=== PATIENT | male | born 1970 | race Caucasian/White ===

== ENCOUNTER 2016-09-04 21:51 | Emergency (ER) | payer OTHER, MEDICAID ==
[2016-09-04 22:00] VITALS: BP 134/83
--- NOTE | 2016-09-05 01:11 | ER Document Report ---
ED Extremity Problem, Lower - General Chief Complaint: Ankle Injury Stated Complaint: ANKLE INJURY Mode of Arrival: Ambulatory Information source: Patient TRAVEL OUTSIDE OF THE [place] IN LAST 30 DAYS: No - HPI Patient complains to provider of: Pain Notes: Patient arrives with complaints of right foot and ankle pain since today. The patient states he hiked approximately 10 miles, had an inversion injury during the hike. He now has swelling to the foot and ankle. He said prior fracture to this foot. He is due to have his left hip replaced, and states that he needs to have the foot evaluated prior to being able to have his hip surgery. He denies any other injuries. He denies any fever. No redness. No nausea, vomiting, diarrhea. No numbness tingling or weakness. No chest pain or shortness of breath. His other complaints or injuries at this time. - Related Data Allergies/Adverse Reactions: atorvastatin calcium [From Lipitor] Allergy (Verified 01/05/15 01:27) Past Medical History - Social History Smoking Status: Unknown if Ever Smoked Family History: CAD, CVA, DM, Hyperlipidemia, Hypertension, Malignancy Patient has suicidal ideation: No Patient has homicidal ideation: No - Past Medical History Cardiac Medical History: Reports: Hx Hypercholesterolemia, Hx Hypertension Neurological Medical History: Reports: Hx Migraine Renal/ Medical History: Denies: Hx Peritoneal Dialysis GI Medical History: Reports: Hx Gastroesophageal Reflux Disease Musculoskeltal Medical History: Reports Hx Arthritis, Reports Hx Musculoskeletal Deformity, Reports Hx Musculoskeletal Trauma Psychiatric Medical History: Reports: Hx Anxiety, Hx Depression - major depressive d/o Traumatic Medical History: Reports: Hx Fractures Past Surgical History: Reports: Hx Nose Surgery - septalplasty, Hx Orthopedic Surgery - left 5th finger, Hx Testicular Surgery - vasectomy - Immunizations Immunizations up to date: Yes Hx Diphtheria, Pertussis, Tetanus Vaccination: No Review of Systems - Review of Systems -: Yes All other systems reviewed and negative Physical Exam - Vital signs Vitals: Temp Pulse Resp BP Pulse Ox 98.5 F 95 18 134/83 H 94 09/04/16 21:58 09/04/16 21:58 09/04/16 21:58 09/04/16 21:58 09/04/16 21:58 - Notes Notes: GENERAL: alert, cooperative, nontoxic, no distress. HEAD: normocephalic, atraumatic EYES: conjunctiva pink without discharge, no external redness or swelling. EARS: no external swelling, no external redness NOSE: atraumatic, no external swelling MOUTH/THROAT: mucous membranes moist and pink NECK: soft, supple, full range of motion, no meningismus. CHEST: no distress, lungs clear and equal throughout. No wheezing, rales, rhonchi. CARDIAC: regular rate and rhythm, no murmur, normal capillary refill, normal pulses. BACK: full range of motion, no CVA tenderness. EXTREMITIES: Tenderness to palpation in lateral aspect of the right foot and lateral and medial malleolus of the right lower extremity. Full range of motion. No ligament instability. Achilles is intact with a normal Swartz status. No redness. Normal pulse and sensation distally. NEURO: alert and oriented 3, no focal deficits, full range of motion of all extremities. PYSCH: appropriate mood, affect. Patient is cooperative. SKIN: pink, warm, dry, no rash. Course - Re-evaluation Re-evalutation: 09/05/16 01:46 Patient is nontoxic appearing with stable vitals. Patient has a benign exam. X -rays were ordered of the right foot and ankle. Apparently the patient family were upset due to the extended wait time and did not want to wait on x-rays to be completed. It up leaving the emergency department without their x-rays are without any discharge paperwork. The patient is noted to have elevated blood pressure during today's emergency department visit. The patient was informed of this finding. The patient was instructed that this may be related to pre-hypertension and requires further evaluation with a primary care provider. The patient has no hypertensive symptoms at this time. - Vital Signs Vital signs: Temp Pulse Resp BP Pulse Ox 98.5 F 95 18 134/83 H 94 09/04/16 21:58 09/04/16 21:58 09/04/16 21:58 09/04/16 21:58 09/04/16 21:58 Discharge - Discharge Clinical Impression: Pain in joint involving ankle and foot Qualifiers: Laterality: right Qualified Code(s): M25.571 - Pain in right ankle and joints of right foot Condition: Stable Disposition: ELOPED
== END 2016-09-05 01:43 | disposition left against medical advice (07) ==
LOC: ER 21:51
DX: M25.571 Pain in right ankle and joints of right foot (principal); X50.1XXA Overexertion from prolonged static or awkward postures, initial encounter
CPT/HCPCS: 99281

== ENCOUNTER 2016-10-18 22:11 | Emergency (ER) | payer MEDICAID ==
[2016-10-18 22:17] VITALS: BP 120/78
== END 2016-10-18 23:53 | disposition left against medical advice (07) ==
LOC: ER 22:11
DX: Z53.9 Procedure and treatment not carried out, unspecified reason (principal)

== ENCOUNTER → 2016-11-15 | Outpatient (CLI) | payer MEDICAID ==
[2016-11-15 18:22] LABS: HEMATOCRIT 42.9 % (37.9-51.0); HGB HCT DIFFERENCE -0.9; MEAN CORPUSCULAR HEMOGLOBIN 28.1 pg (27.0-33.4); MEAN CORPUSCULAR HGB CONC 32.6 g/dL (32.0-36.0); MEAN CORPUSCULAR VOLUME 86 fl (80-97); RED BLOOD COUNT 4.97 10^6/uL (4.35-5.55); RED CELL DISTRIBUTION WIDTH 13.9 % (11.5-14.0); WHITE BLOOD COUNT 8.6 10^3/uL (4.0-10.5)
[2016-11-15 19:43] LABS: ERYTHROCYTE SEDIMENTATION RATE 7 mm/hr (0-15)
== END ==
LOC: LAB 18:12
PROVIDERS: ATTEND Orthopaedic Surgery
DX: Z96.649 Presence of unspecified artificial hip joint (principal)
CPT/HCPCS: 36415; 85027; 85652; 86140

== ENCOUNTER 2018-05-07 01:57 | Emergency (ER) | payer MEDICAID, OTHER ==
[2018-05-07 02:07] VITALS: BP 132/89
[2018-05-07] MEDS ORDERED: AMOXICILLIN TR/POT CLAVULANATE 500-125 MG TAB PO ONE (02:55)
--- NOTE | 2018-05-07 03:05 | ER Document Report ---
ED General - General Chief Complaint: Productive Cough Stated Complaint: NAUSEA Time Seen by Provider: 05/07/18 02:24 Notes: Patient is a 48-year-old male presents with complaint of sore throat, cough, congestion, and pressure in her sinuses is worse in the right side. Symptoms been going on for over a week. Started shortly after her daughter was diagnosed with a pharyngitis. His daughter had a strep swab which was negative but then the culture grew out staph aureus as a cause of her pharyngitis. She was placed on Augmentin. Daughter is improved after being placed on Augmentin. Patient says that he always has some hearing loss in the left ear however has become much worse in last few weeks since roopa his symptoms. TRAVEL OUTSIDE OF THE [place] IN LAST 30 DAYS: No - Related Data Allergies/Adverse Reactions: atorvastatin calcium [From Lipitor] Allergy (Verified 01/05/15 01:27) Past Medical History - Social History Smoking Status: Never Smoker Chew tobacco use (# tins/day): Yes Frequency of alcohol use: None Drug Abuse: None Family History: CAD, CVA, DM, Hyperlipidemia, Hypertension, Malignancy - Past Medical History Cardiac Medical History: Reports: Hx Hypercholesterolemia, Hx Hypertension Neurological Medical History: Reports: Hx Migraine Renal/ Medical History: Denies: Hx Peritoneal Dialysis GI Medical History: Reports: Hx Gastroesophageal Reflux Disease Musculoskeletal Medical History: Reports Hx Arthritis, Reports Hx Musculoskeletal Deformity, Reports Hx Musculoskeletal Trauma Psychiatric Medical History: Reports: Hx Anxiety, Hx Depression - major depressive d/o Traumatic Medical History: Reports: Hx Fractures Past Surgical History: Reports: Hx Nose Surgery - septalplasty, Hx Orthopedic Surgery - left 5th finger, Hx Testicular Surgery - vasectomy - Immunizations Immunizations up to date: Yes Hx Diphtheria, Pertussis, Tetanus Vaccination: No Review of Systems - Review of Systems Notes: My Normal Review Basic REVIEW OF SYSTEMS: CONSTITUTIONAL : Denies fever, chills, or sweats. EENT: Nasal congestion. Left ear pain. RESPIRATORY: Denies cough, cold, or chest congestion. Denies shortness of breath, difficulty breathing, or wheezing. GASTROINTESTINAL: Denies abdominal pain. Denies nausea, vomiting, or diarrhea. MUSCULOSKELETAL: Denies neck or back pain or joint pain or swelling. SKIN: Denies rash or skin lesions. NEUROLOGICAL: Denies altered mental status or loss of consciousness. Denies headache. Denies weakness or paralysis or loss of use of either side. Denies problems with gait or speech. Denies sensory or motor loss. ALL OTHER SYSTEMS REVIEWED AND NEGATIVE. Physical Exam - Vital signs Vitals: Temp Pulse Resp BP Pulse Ox 97.8 F 65 14 132/89 H 97 05/07/18 02:04 05/07/18 02:04 05/07/18 02:04 05/07/18 02:04 05/07/18 02:04 - Notes Notes: General Appearance: Well nourished, alert, cooperative, no acute distress, no obvious discomfort. Well-appearing. Vitals: reviewed, See vital signs table. Head: no swelling or tenderness to the head Eyes: PERRL, EOMI, Conjuctiva clear Mouth: No decreasd moisture Throat: No tonsillar inflammation, No airway obstruction, No lymphadenopathy Ears: Left TM has a lot of fluid behind it. He also appears to have some chronic scarring from previous injury. No redness. Neck: Supple, no neck tenderness Lungs: No wheezing, No rales, No rhonci, No accessory muscle use, good air exchange bilaterally. Heart: Normal rate, Regular rythm, No murmur, no rub Extremities: good pulses in all extremities, no swelling or tenderness in the extremities, no edema. Skin: warm, dry, appropriate color, no rash Neuro: speech clear, oriented x 3, normal affect, responds appropriately to questions. Course - Re-evaluation Re-evalutation: 05/07/18 06:[address] patient on Augmentin due to the recent history of exposure to the daughter who had staph aureus positive pharyngitis in the patient since then been developing sinusitis and pressure behind his left ear. He does have hearing loss in his left ear which is much worse the last couple weeks. I will have him follow-up with ENT. I will place on Augmentin. I encouraged him return to ER if his fevers, vomiting, or feel that he is worsening. Patient agrees with plan and will be discharged home. Dictation of this chart was performed using voice recognition software; therefore, there may be some unintended grammatical errors. - Vital Signs Vital signs: Temp Pulse Resp BP Pulse Ox 97.8 F 65 14 132/89 H 97 05/07/18 02:04 05/07/18 02:04 05/07/18 02:04 05/07/18 02:04 05/07/18 02:04 Discharge - Discharge Clinical Impression: Sinusitis Qualifiers: Sinusitis location: unspecified location Chronicity: acute Recurrence: not specified as recurrent Qualified Code(s): J01.90 - Acute sinusitis, unspecified Condition: Good Disposition: HOME, SELF-CARE Additional Instructions: Please take the antibiotic as prescribed with food. Please return to the ER if you have fevers, difficulty breathing, worsening pain, or feel unwell. Please follow up with your doctor in 3-5 days for reevaluation. Please follow-up with the ENT doctor, Dr. Durham, if you are still having hearing loss in the left ear after finishing your antibiotic. Prescriptions: Amox Tr/Potassium Clavulanate [Augmentin 875-125 Tablet] 1 tab PO BID 10 Days tablet Referrals: MERLIN DURHAM DO [ASSOCIATE] - Follow up in 1 week
== END 2018-05-07 03:30 | disposition home or self-care (01) ==
LOC: ER 01:57
DX: J01.90 Acute sinusitis, unspecified (principal); R05 Cough; J02.9 Acute pharyngitis, unspecified; H92.02 Otalgia, left ear; H91.92 Unspecified hearing loss, left ear; R09.81 Nasal congestion; I10 Essential (primary) hypertension; Z20.818 Contact with and (suspected) exposure to other bacterial communicable diseases; Z72.0 Tobacco use
CPT/HCPCS: 99283

== ENCOUNTER → 2018-06-09 | Outpatient (CLI) | payer OTHER ==
--- NOTE | 2018-06-09 09:28 | RADIOLOGY REPORT (SQ) ---
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 TECHNIQUE: CT scanogram of the bilateral lower extremities is performed including pelvis to ankles. Measurements of femur, tibia, and entire lower extremities performed by the radiologist and saved to PACS. All CT scanners at this facility use dose modulation, iterative reconstruction, and/or weight based d osing when appropriate to reduce radiation dose to as low as reasonably achievable (ALARA). [facility]: Dose Right [facility]: CareDose [facility]: Dose Right [facility]: Teradose 4D [facility]: I AND [employer] RADIATION DOSE: Less than 1 mGy. LIMITATIONS: None. FINDINGS: RIGHT: FEMUR: 50 cm. TIBIA: 40.2 cm. TOTAL RIGHT LOWER EXTREMITY LENGTH: 90.5 cm. LEFT: FEMUR: 50.1 cm. TIBIA: 40.2 cm. TOTAL LEFT LOWER EXTREMITY LENGTH: 90.5 cm. IMPRESSION: LEG LENGTH MEASUREMENTS DETAILED ABOVE. TECHNICAL DOCUMENTATION: JOB ID: [id number] Quality ID # [id number]: Final reports with documentation of one or more dose reduction techniques (e.g., Au tomated exposure control, adjustment of the mA and/or kV according to patient size, use of iterative reconstruction technique) 2010 [employer]- All Rights Reserved Reading location - IP/workstation name: [email or web address]
== END ==
LOC: RAD 09:02
PROVIDERS: ATTEND Podiatrist Foot & Ankle Surgery
DX: Q72.819 Congenital shortening of unspecified lower limb (principal)
CPT/HCPCS: 77073

== ENCOUNTER 2019-01-21 16:41 | Emergency (ER) | payer OTHER ==
[2019-01-21 16:50] VITALS: BP 150/98
--- NOTE | 2019-01-21 17:05 | ER Document Report ---
ED General - General Chief Complaint: Facial Droop Stated Complaint: POSSIBLE STROKE Primary Care Provider: KING ROSE DPM [Primary Care Provider] - Follow up as needed TRAVEL OUTSIDE OF THE [place] IN LAST 30 DAYS: No - HPI Notes: Patient is a 48-year-old male with history of orthopedic issues from the and mental health disorders as well as hypertension who presents complaining of left facial droop, difficulty closing the left eyelid, and occasional issues with speech that began last night. Patient states that he has noticed a little bit more of a droop to the left side this morning, but is otherwise feeling well. He is able to eat and drink without difficulty. He is urinating normally and having normal bowel movements. He has not noticed any other deficits. No tick bites or recent illness. Denies any headache, fever, head injury, neck pain, changes in vision/speech/mentation/hearing, URI, sore throat, chest pain, palpitations, syncope, cough, shortness of breath, wheeze, dyspnea, abdominal pain, nausea/vomiting/diarrhea, urinary retention, dysuria, hematuria, loss of control of bowel or bladder, numbness/tingling, saddle anesthesia, or rash. - Related Data Allergies/Adverse Reactions: atorvastatin calcium [From Lipitor] Allergy (Verified 01/21/19 16:43) Past Medical History - Social History Smoking Status: Unknown if Ever Smoked Family History: CAD, CVA, DM, Hyperlipidemia, Hypertension, Malignancy - Past Medical History Cardiac Medical History: Reports: Hx Hypercholesterolemia, Hx Hypertension Neurological Medical History: Reports: Hx Migraine Renal/ Medical History: Denies: Hx Peritoneal Dialysis GI Medical History: Reports: Hx Gastroesophageal Reflux Disease Musculoskeletal Medical History: Reports Hx Arthritis, Reports Hx Musculoskeletal Deformity, Reports Hx Musculoskeletal Trauma Psychiatric Medical History: Reports: Hx Anxiety, Hx Depression - major depressive d/o Traumatic Medical History: Reports: Hx Fractures Past Surgical History: Reports: Hx Nose Surgery - septalplasty, Hx Orthopedic Surgery - left 5th finger, Hx Testicular Surgery - vasectomy - Immunizations Immunizations up to date: Yes Hx Diphtheria, Pertussis, Tetanus Vaccination: No Review of Systems - Review of Systems -: Yes All other systems reviewed and negative Physical Exam - Vital signs Vitals: Temp Pulse Resp BP Pulse Ox 99.0 F 90 16 150/98 H 97 01/21/19 16:48 01/21/19 16:48 01/21/19 16:48 01/21/19 16:48 01/21/19 16:48 - Notes Notes: PHYSICAL EXAMINATION: GENERAL: Well-appearing, well-nourished and in no acute distress. A&Ox4. Answers questions appropriately. HEAD: Atraumatic, normocephalic. Non-tender. EYES: Pupils equal round and reactive to light, extraocular movements intact, sclera anicteric, conjunctiva are normal. No nystagmus. See neuro exam below as well* ENT: EAC clear b/l. TM's intact b/l without erythema, fluid, or perforation. Nares patent and without discharge. oropharynx clear without exudates. No tonsilar hypertrophy or erythema. Moist mucous membranes. No sinus tenderness. NECK: Normal range of motion, supple without lymphadenopathy. No rigidity/meningismus. No midline tenderness. LUNGS: Breath sounds clear to auscultation bilaterally and equal. No wheezes rales or rhonchi. HEART: Regular rate and rhythm without murmurs, rubs, gallops. ABDOMEN: Soft, nontender, nondistended abdomen. No guarding, no rebound. Normal bowel sounds present. No CVA tenderness bilaterally. Musculoskeletal: Ext b/l: FROM to passive/active. Strength 5+/5. No deficits noted. No bony tenderness of extremities. Extremities: No cyanosis, clubbing, or edema b/l. Peripheral pulses 2+. Capillary refill less than 2 seconds. NEUROLOGICAL: Pt has a left sided facial droop and left lid lag with vertical gaze (lt eye) when trying to close eyes. He has lost the wrinkles to the left forehead as well. GCS 15. Cranial nerves grossly intact otherwise. Normal speech, normal gait. Normal sensory, motor exams. Reflexes 2+ b/l. JAMIE's negative. Pronator drift negative. Heel/grider, finger/nose wnl. Romberg neg. PSYCH: Normal mood, normal affect. SKIN: Warm, Dry, normal turgor, no rashes or lesions noted. Course - Re-evaluation Re-evalutation: 01/21/19 17:[address] Wise who is in agreement with dispo/plan: Patient is an afebrile, well-hydrated, 48-year-old male who presents to the ED with left-sided Bazan's palsy. Vitals are acceptable without any significant tachycardia, tachypnea, or hypoxia. PE shows vertical gaze to left eye when trying to close his eyes, and complete closure of the eyelid, loss of wrinkles the left side of the forehead, and left facial droop without any focal neurological deficits noted. GCS 15, cranial nerves grossly intact otherwise. He has no associated pain or discomfort. No labs or imaging warranted at this time based on H&P. He is nontoxic-appearing and is tolerating p.o. without any difficulties. Low suspicion for any acute glaucoma, temporal arteritis, meningitis, intracranial hemorrhage, ischemic stroke, or fracture at this time. Patient is aware that this condition can change from initial presentation and that he needs to monitor symptoms closely for any acute changes. I will send him home with a prescription for valacyclovir as well as prednisone. Recheck with your PCM/neurologist in 3-5 days. Return to the ED with any worsening/concerning symptoms otherwise as reviewed in discharge. Patient is in agreement. - Vital Signs Vital signs: Temp Pulse Resp BP Pulse Ox 99.0 F 90 16 150/98 H 97 01/21/19 16:48 01/21/19 16:48 01/21/19 16:48 01/21/19 16:48 01/21/19 16:48 Discharge - Discharge Clinical Impression: Bazan's palsy Condition: Stable Disposition: HOME, SELF-CARE Instructions: Bazan's Palsy ([facility]) Additional Instructions: Rest, Ice/cool compress Tylenol/ibuprofen as needed Light stretches daily Strength exercises as able Moist heat and massage may help F/u with your PCP in 3-5 days for a recheck Schedule appointment with an eye doctor as well and use artificial tears regularly Schedule consult with neurology Return to the ED with any worsening symptoms and/or development of fever, headache, changes in behavior/mentation/vision/speech, chest pain, palpitations, syncope, shortness of breath, trouble breathing, abdominal pain, n/v/d, blood in stool/urine, loss of control of bowel/bladder, urinary retention, muscle weakness/paralysis, saddle anesthesia, numbness/tingling, or other worsening symptoms that are concerning to you. Prescriptions: Prednisone [Deltasone 20 mg Tablet] 3 tab PO DAILY 7 Days tablet Valacyclovir HCl [Valtrex] 1,000 mg PO TID #21 tablet Forms: Elevated Blood Pressure Referrals: KING ROSE DPM [Primary Care Provider] - Follow up as needed KATY DEL REAL MD [NO LOCAL MD] - Follow up as needed SILVIA ORTEGA MD [ACTIVE STAFF] - Follow up as needed
== END 2019-01-21 17:25 | disposition home or self-care (01) ==
LOC: ER 16:41
DX: G51.0 Bell's palsy (principal); I10 Essential (primary) hypertension; Z88.8 Allergy status to other drugs, medicaments and biological substances; Z82.3 Family history of stroke
CPT/HCPCS: 99284